=== PATIENT | female | born 1965 | race Caucasian/White ===

== ENCOUNTER 2018-04-24 14:08 | Emergency (ER) | payer MEDICAID ==
[~2018-04-24] VITALS: Ht 160 cm; Wt 50.9 kg
[2018-04-24 14:27] VITALS: Ht 160 cm; Wt 50.9 kg
[2018-04-24] MEDS ORDERED: PREMARIN0.625 MG PO (14:30)
[2018-04-24] MEDS ORDERED: VENTOLIN HFA18 GM INH (14:31)
[2018-04-24 16:10] VITALS: BP 104/57
== END 2018-04-24 16:10 | disposition home or self-care (01) ==
LOC: D.ER 14:08
DX: S05.01XA Injury of conjunctiva and corneal abrasion without foreign body, right eye, initial encounter (principal); X58.XXXA Exposure to other specified factors, initial encounter; Y93.89 Activity, other specified; Y92.019 Unspecified place in single-family (private) house as the place of occurrence of the external cause

== ENCOUNTER 2019-01-26 | Emergency (ER) | payer MEDICAID ==
[~2019-01-26] VITALS: Ht 160 cm; Wt 49.1 kg
[~2019-01-26] MED LIST: PREMARIN0.625 MG PO; VENTOLIN HFA18 GM INH
[2019-01-26 00:07] VITALS: Ht 160 cm; Wt 49.1 kg
[2019-01-26] MEDS ORDERED: TRAZODONE HCL150 MG PO ×2 (00:09→00:10)
[2019-01-26] MEDS ORDERED: ALBUTEROL SULF8.5 GM (00:11)
[2019-01-26 00:40] LABS: UDS - AMPHET NEGATIVE QUAL (NEGATIVE); UDS - BARB NEGATIVE QUAL (NEGATIVE); UDS - BENZO NEGATIVE QUAL (NEGATIVE); UDS - COCAINE NEGATIVE QUAL (NEGATIVE); UDS - OPIATE NEGATIVE QUAL (NEGATIVE); UDS - PCP NEGATIVE QUAL (NEGATIVE); UDS - THC POSITIVE QUAL (NEGATIVE)
[2019-01-26 00:41] LABS: APPEARANCE CLEAR (CLEAR); BILIRUBIN NEGATIVE (NEGATIVE); COLOR YELLOW (YELLOW); GLUCOSE NEGATIVE (NEGATIVE); HCG URINE NEGATIVE (NEGATIVE); KETONE MODERATE mg/dL (NEGATIVE); NITRITE NEGATIVE (NEGATIVE); PROTEIN NEGATIVE (NEGATIVE); UROBILINOGEN NORMAL (NORMAL)
[2019-01-26 00:42] LABS: WHITE CELLS - URINE 0-5 /hpf (0-5)
[2019-01-26 00:43] LABS: BACTERIA MODERATE /hpf (NONE SEEN); EPITHELIAL CELLS 0-5 /hpf (0-5); HYALINE CAST 0-5 /lpf (NONE SEEN); MUCUS >1+ /lpf (NONE SEEN); RED CELLS - URINE NONE SEEN /hpf (0-5)
[2019-01-26 00:49] LABS: ALBUMIN 3.5 g/dL (3.4-5.0); ANION GAP 12.2 mmol/L (8-16); BASOPHILS 0.1 % (0-2); BILIRUBIN - TOTAL 0.67 mg/dL (0.2-1.3); CALCIUM 8.9 mg/dL (8.5-10.1); CARBON DIOXIDE 26.6 mmol/L (21.0-32.0); EOSINOPHILS 0.3 % (0-7); HEMATOCRIT 41.3 % (36.0-48.0); IMMATURE GRANULOCYTES 0.3 % (0-5); LYMPHOCYTES 12.7 % (15-50); MAGNESIUM - SERUM 1.7 mg/dL (1.8-2.4); MCH 30.8 pg (26.0-34.0); MCHC 33.9 g/dL (31.0-37.0); MEAN PLATELET VOLUME 10.8 fL (7.4-10.4); MONOCYTES 12.3 % (2-11); NEUTROPHILS 74.3 % (40-80); PLATELET COUNT 187 10x3/uL (130-400); POTASSIUM - SERUM 3.8 mmol/L (3.5-5.1); RBC 4.54 10x6/uL (4.00-5.40); RDW 12.6 % (11.5-14.5); WBC 7.7 10x3/uL (4.8-10.8)
--- NOTE | 2019-01-26 01:27 | NUR ---
DR WHTIT NOTIFIED AND SITTER ORDERED. SITTER AT BEDSIDE. NOTIFIED CHARGE NURSE AND ATTENDING IN [facility] TO ASSESSMENT FINDINGS. RESOURCES GIVEN TO PT AND SAFETY PLAN INITIATED.
[2019-01-26 02:40] VITALS: BP 102/52
== END 2019-01-26 04:10 ==
LOC: D.ER
PROVIDERS: Family Medicine
DX: R45.851 Suicidal ideations (principal); T43.212A Poisoning by selective serotonin and norepinephrine reuptake inhibitors, intentional self-harm, initial encounter; Y92.019 Unspecified place in single-family (private) house as the place of occurrence of the external cause

== ENCOUNTER 2019-10-30 09:27 | Emergency (ER) | payer MEDICAID ==
[~2019-10-30] VITALS: Ht 160 cm; Wt 52.7 kg
[~2019-10-30 09:27] MED LIST changes: +ALBUTEROL SULF8.5 GM; +TRAZODONE HCL150 MG PO
[2019-10-30 09:31] VITALS: Ht 160 cm; Wt 52.7 kg
[2019-10-30 10:00] LABS: APTT 23.5 SECONDS (22.8-39.4); INR 0.84 (0.85-1.17); PROTIME 11.5 SECONDS (11.6-15.0)
[2019-10-30 10:03] LABS: HEMATOCRIT 49.2 % (36.0-48.0); HEMOGLOBIN 16.1 g/dL (12-16); LYMPHOCYTES 9.5 % (15-50); MCH 30.4 pg (26.0-34.0); MCHC 32.7 g/dL (31.0-37.0); MEAN PLATELET VOLUME 11.1 fL (7.4-10.4); NEUTROPHILS 80.5 % (40-80); PLATELET COUNT 200 10x3/uL (130-400); RBC 5.29 10x6/uL (4.00-5.40); WBC 8.4 10x3/uL (4.8-10.8)
[2019-10-30 10:09] LABS: CALC OSMOLALITY 279 mosm/kg (275-300); CARBON DIOXIDE 22.4 mmol/L (21.0-32.0); CHLORIDE - SERUM 104 mmol/L (98-107); GLUCOSE 117 mg/dL (74-106); POTASSIUM - SERUM 4.3 mmol/L (3.5-5.1); SODIUM 140 mmol/L (136-145); UREA NITROGEN 12 mg/dL (7-18); eGFR NON AFRICAN AMERICAN 61 mL/min (90-120)
[2019-10-30 11:19] LABS: ALKALINE PHOSPHATASE 108 U/L (30-120); BILIRUBIN - TOTAL 0.36 mg/dL (0.2-1.3); CKMB 1.3 U/L (0.0-3.6); CREATINE KINASE 131 UL (21-215); PROTEIN - SERUM 8.1 g/dL (6.4-8.2)
[2019-10-30 11:21] LABS: TROPONIN-I < 0.017 ng/mL (0.000-0.060)
[2019-10-30 11:31] LABS: ALT (SGPT) 19 U/L (10-68); MAGNESIUM - SERUM 1.9 mg/dL (1.8-2.4)
[2019-10-30] MEDS ORDERED: IBUPROFEN800 MG PO (11:37)
[2019-10-30] MEDS ORDERED: ACETAMINOPHEN500 M1 PO (11:37)
[2019-10-30] MEDS ORDERED: CYCLOBENZAPRINE10 MG PO (11:37)
[2019-10-30 16:25] VITALS: BP 118/70
== END 2019-10-30 16:31 | disposition home or self-care (01) ==
LOC: D.ER 09:27
PROVIDERS: Family Medicine
DX: M54.9 Dorsalgia, unspecified (principal); M25.512 Pain in left shoulder; M25.511 Pain in right shoulder; R07.9 Chest pain, unspecified; R51 Headache; M79.18 Myalgia, other site; T14.8XXA Other injury of unspecified body region, initial encounter; M54.2 Cervicalgia; S61.305A Unspecified open wound of left ring finger with damage to nail, initial encounter; Y04.8XXA Assault by other bodily force, initial encounter; Y93.9 Activity, unspecified; Y92.9 Unspecified place or not applicable; R06.02 Shortness of breath

== ENCOUNTER 2020-03-16 21:58 | Emergency (ER) | payer MEDICAID ==
[~2020-03-16] VITALS: Ht 160 cm; Wt 45.5 kg
[~2020-03-16 21:58] MED LIST changes: +ACETAMINOPHEN500 M1 PO; +CYCLOBENZAPRINE10 MG PO; +IBUPROFEN800 MG PO
[2020-03-16 22:14] VITALS: BP 139/77; Ht 160 cm; Wt 45.5 kg
[2020-03-16] MEDS ORDERED: OMNICEF300 MG PO (22:22)
== END 2020-03-16 23:07 | disposition home or self-care (01) ==
LOC: D.ER 21:58
DX: J02.9 Acute pharyngitis, unspecified (principal); J45.909 Unspecified asthma, uncomplicated